=== PATIENT | female | born 1945 | race African-American/Black ===

== ENCOUNTER 2019-10-30 20:15 | Inpatient (IN) | payer OTHER ==
[~2019-10-30] VITALS: Ht 162.6 cm; Wt 62.6 kg
[2019-10-30] MEDS ORDERED: SODIUM CHLORIDE 0.9% 1,000 ML IV ONE (20:57)
[2019-10-30 21:45] LABS: BASOPHILS % 0.3 % (0.0-2.0); EOSINOPHILS % 0.5 % (0.0-5.0); HEMATOCRIT. 44.9 % (36.0-48.0); HEMOGLOBIN. 14.6 g/dL (12.0-16.0); LYMPHOCYTES % 30.7 % (20.0-50.0); MEAN CORPUSCULAR HEMOGLOBIN 25.2 pg (28.0-32.0); MEAN CORPUSCULAR VOLUME 77.5 fL (81.0-99.0); MEAN PLATELET VOLUME 11.1 fl (7.4-10.4); MONOCYTES % 11.3 % (2.0-8.0); NEUTROPHILS % 57.2 % (40.0-76.0); PLATELET 161 x1000/uL (130-400); RED BLOOD CELL COUNT 5.79 mill/uL (4.2-5.4); RED CELL DISTRIBUTION WIDTH 16.1 % (11.6-14.6)
[2019-10-30 21:50] LABS: CHLORIDE 108 mEq/L (98-107)
[2019-10-30] MEDS ORDERED: ASPIRIN 325MG TABLET PO ONE (22:45)
[2019-10-31] VITALS: BP 174/81
[2019-10-31] MEDS ORDERED: NITROGLYCERIN 0.4MG TABLET SL SL PRN (00:15)
[2019-10-31] MEDS ORDERED: ONDANSETRON HCL 4MG/2ML INJ IV PRN (00:15)
[2019-10-31] MEDS ORDERED: ACETAMINOPHEN 325MG TABLET PO PRN (00:15)
[2019-10-31] MEDS ORDERED: HYDRALAZINE 20MG/ML VIAL IV PRN (00:15)
[2019-10-31] MEDS ORDERED: POTASSIUM CHLORIDE 20MEQ TABLET SR PO NR ×4 (01:00→13:30)
[2019-10-31] MEDS ORDERED: ATORVASTATIN CALCIUM 40MG TABLET PO NR (01:00)
[2019-10-31] MEDS: CLONIDINE 0.1MG TABLET PO PRN ×2 (02:15→18:30)
[2019-10-31 04:00] VITALS: BP 133/58
[2019-10-31] MEDS ORDERED: ASPIRIN 81MG EC TABLET PO SCH (09:00)
[2019-10-31] MEDS: HEPARIN 5000 UNITS/ML VIAL SUBCUT SCH ×2 (09:02→22:06)
[2019-10-31 12:00] VITALS: BP 126/60
[2019-10-31 16:00] VITALS: BP 162/57
[2019-10-31 16:30] LABS: BASOPHILS % 0.5 % (0.0-2.0); EOSINOPHILS % 0.8 % (0.0-5.0); HEMATOCRIT. 40.6 % (36.0-48.0); HEMOGLOBIN. 12.9 g/dL (12.0-16.0); LYMPHOCYTES % 39.7 % (20.0-50.0); MEAN CORPUSCULAR HEMOGLOBIN 24.6 pg (28.0-32.0); MEAN PLATELET VOLUME 10.3 fl (7.4-10.4); MONOCYTES % 9.7 % (2.0-8.0); NEUTROPHILS % 49.3 % (40.0-76.0); PLATELET 131 x1000/uL (130-400); RED BLOOD CELL COUNT 5.27 mill/uL (4.2-5.4); RED CELL DISTRIBUTION WIDTH 15.8 % (11.6-14.6)
[2019-10-31 16:38] LABS: CHLORIDE 111 mEq/L (98-107)
[2019-10-31 18:07] VITALS: BP 136/65
[2019-10-31 20:00] VITALS: BP 118/45
== END 2019-10-31 22:25 | disposition short-term general hospital (02) | DRG 64 ==
LOC: ER 20:15 → 7WST 22:30 → EDBEDREQ 22:31 → EDBEDREQTM 22:31 → ENRESERV 23:06
PROVIDERS: ADMIT Family Medicine Adult Medicine; ATTEND Family Medicine Adult Medicine
DX: I63.89 Other cerebral infarction (principal); I21.4 Non-ST elevation (NSTEMI) myocardial infarction; I16.1 Hypertensive emergency; I42.9 Cardiomyopathy, unspecified; E78.5 Hyperlipidemia, unspecified; E87.6 Hypokalemia; I10 Essential (primary) hypertension; I25.10 Atherosclerotic heart disease of native coronary artery without angina pectoris; I49.3 Ventricular premature depolarization; R47.01 Aphasia; Z79.82 Long term (current) use of aspirin; Z82.3 Family history of stroke; Z82.49 Family history of ischemic heart disease and other diseases of the circulatory system; I25.2 Old myocardial infarction; Z86.73 Personal history of transient ischemic attack (TIA), and cerebral infarction without residual deficits; Z95.5 Presence of coronary angioplasty implant and graft; Z95.1 Presence of aortocoronary bypass graft; Z79.899 Other long term (current) drug therapy
CPT/HCPCS: 36415; 70544; 70553; 71045; 80048; 80053; 83036; 83605; 83735; 84484; 85025; 92523; 92610; 93005; 93306; 93880; 97162; 97166; 99291; J1644; J7030